=== PATIENT | male | born 1980 | race Caucasian/White ===

== ENCOUNTER 2018-10-07 12:39 | Emergency (ER) | payer MEDICAID ==
[~2018-10-07] VITALS: Ht 182.9 cm; Wt 84.1 kg
[2018-10-07] MEDS ORDERED: PROP10TA73 PO (12:47)
[2018-10-07] MEDS ORDERED: CLON1 PO (12:47)
[2018-10-07] MEDS ORDERED: VENL25TA47 PO (12:47)
[2018-10-07 13:20] VITALS: BP 112/66
== END 2018-10-07 13:55 | disposition home or self-care (01) ==
LOC: EMS 12:42
DX: R61 Generalized hyperhidrosis (principal); F41.9 Anxiety disorder, unspecified; G89.29 Other chronic pain

== ENCOUNTER 2019-03-01 01:59 | Emergency (ER) | payer MEDICARE, MEDICAID ==
[~2019-03-01] VITALS: Ht 182.9 cm; Wt 88.6 kg
[~2019-03-01 01:59] MED LIST: CLON1TAB13 PO; PROP10TA73 PO; VENL25TA47 PO
[2019-03-01] MEDS ORDERED: SUMA25TA9 PO (02:21)
[2019-03-01 03:53] LABS: AMPHET/METH SCREEN,URINE NEGATIVE (NEGATIVE); BARBITURATE SCREEN, URINE NEGATIVE (NEGATIVE); BENZODIAZEPINES SCREEN,URINE NEGATIVE (NEGATIVE); CANNABINOID SCREEN,URINE POSITIVE (NEGATIVE); COCAINE SCREEN,URINE NEGATIVE (NEGATIVE); METHADONE SCREEN, URINE NEGATIVE (NEGATIVE); OPIATE SCREEN,URINE NEGATIVE (NEGATIVE)
[2019-03-01 03:55] LABS: PHENCYCLIDINE SCREEN,URINE NEGATIVE (NEGATIVE)
[2019-03-01 04:32] VITALS: BP 133/75
== END 2019-03-01 04:55 | disposition left against medical advice (07) ==
LOC: EMS 01:59
DX: F41.9 Anxiety disorder, unspecified (principal); G43.909 Migraine, unspecified, not intractable, without status migrainosus; F12.90 Cannabis use, unspecified, uncomplicated; Z79.899 Other long term (current) drug therapy; Z98.890 Other specified postprocedural states

== ENCOUNTER 2019-03-20 20:25 | Emergency (ER) | payer MEDICARE, MEDICAID ==
[~2019-03-20] VITALS: Ht 180.3 cm; Wt 85.5 kg
[~2019-03-20 20:25] MED LIST changes: +SUMA25TA9 PO
[2019-03-20 21:45] VITALS: BP 116/70
== END 2019-03-21 02:00 | disposition left against medical advice (07) ==
LOC: EMS 20:26
DX: G89.29 Other chronic pain (principal); M54.5 Low back pain; G43.909 Migraine, unspecified, not intractable, without status migrainosus; F41.9 Anxiety disorder, unspecified; F12.90 Cannabis use, unspecified, uncomplicated; Z79.899 Other long term (current) drug therapy

== ENCOUNTER 2019-03-23 18:42 | Emergency (ER) | payer MEDICARE, MEDICAID ==
[~2019-03-23] VITALS: Ht 180.3 cm; Wt 86.4 kg
[2019-03-23 19:22] VITALS: BP 120/76
[2019-03-23] MEDS ORDERED: KETOROLAC TROMETHAMINE 60 MG/2 ML VIAL IM ONE (19:45)
== END 2019-03-23 20:04 | disposition home or self-care (01) ==
LOC: EMS 18:42
DX: M54.41 Lumbago with sciatica, right side (principal); M54.42 Lumbago with sciatica, left side; G43.909 Migraine, unspecified, not intractable, without status migrainosus; F41.9 Anxiety disorder, unspecified; F12.90 Cannabis use, unspecified, uncomplicated
CPT/HCPCS: 96372; 99283; J1885

== ENCOUNTER 2020-05-14 11:27 | Emergency (ER) | payer MEDICARE, OTHER ==
[~2020-05-14] VITALS: Ht 175.3 cm; Wt 72.7 kg
[~2020-05-14 11:27] MED LIST changes: +CLON-595 PO; -CLON1TAB13 PO
[2020-05-14 12:15] LABS: BASOPHILS % (AUTO) 0.4 % (0.0-2.0); EOSINOPHILS % (AUTO) 0.6 % (1.0-6.0); HEMATOCRIT 41.7 % (41-53); HEMOGLOBIN 14.1 g/dL (13.5-17.5); LYMPHOCYTES # (AUTO) 1.9 K/uL (1.0-4.8); LYMPHOCYTES % (AUTO) 20.1 % (22.0-44.0); MEAN CORPUSCULAR HEMOGLOBIN 31.6 pg (26.0-34.0); MEAN CORPUSCULAR HGB CONC 33.8 G/dL (31.0-37.0); MEAN CORPUSCULAR VOLUME 94 fL (80-100); MONOCYTES # (AUTO) 0.7 K/uL (0.1-1.0); MONOCYTES % (AUTO) 7.7 % (2.0-9.0); NEUTROPHILS # (AUTO) 6.7 K/uL (1.8-7.7); NEUTROPHILS % (AUTO) 71.2 % (40.0-70.0); PLATELET COUNT (AUTO) 220 K/uL (150-450); RED BLOOD CELL COUNT(AUTO) 4.46 MIL/uL (4.50-5.90); RED CELL DISTRIBUTION WIDTH 12.7 % (11.5-14.5)
[2020-05-14 12:21] LABS: ANION GAP 10 mmol/L (8-16); CALCIUM, TOTAL 8.9 mg/dL (8.8-10.5); CARBON DIOXIDE 26 mmol/L (22-29); CHLORIDE 103 mmol/L (98-107); CREATININE 1.08 mg/dL (0.60-1.30); GLOMERULAR FILTR. RATE CALC > 60 mL/min (>60); GLUCOSE,RANDOM 102 mg/dL (70-110); POTASSIUM 4.2 mmol/L (3.5-5.1); SODIUM SERUM 139 mmol/L (136-145); UREA NITROGEN, BLOOD 15 mg/dL (7-18)
[2020-05-14 12:50] VITALS: BP 132/72
== END 2020-05-14 13:30 | disposition home or self-care (01) ==
LOC: EMS 11:27
DX: R07.89 Other chest pain (principal); R06.02 Shortness of breath
CPT/HCPCS: 93005; 36415-L1; 36415-TC; 71045-TC

== ENCOUNTER 2020-05-19 22:16 | Emergency (ER) | payer MEDICARE, OTHER ==
[~2020-05-19] VITALS: Ht 182.9 cm; Wt 86.4 kg
[2020-05-19 22:23] VITALS: BP 127/56
[2020-05-20] MEDS ORDERED: OMEP10 PO (11:54)
== END 2020-05-19 23:07 | disposition left against medical advice (07) ==
LOC: EMS 22:16
DX: S61.412A Laceration without foreign body of left hand, initial encounter (principal); Z53.21 Procedure and treatment not carried out due to patient leaving prior to being seen by health care provider; W45.8XXA Other foreign body or object entering through skin, initial encounter; Y93.89 Activity, other specified; Y92.89 Other specified places as the place of occurrence of the external cause; Y99.8 Other external cause status

== ENCOUNTER 2020-05-20 11:50 | Emergency (ER) | payer MEDICARE, OTHER ==
[~2020-05-20] VITALS: Ht 182.9 cm; Wt 75.0 kg
[2020-05-20] MEDS ORDERED: OMEP10 PO (11:54)
[2020-05-20] MEDS ORDERED: POVIDONE-IODINE 10% 15 ML SOLUTION UD TP ONE (13:45)
[2020-05-20] MEDS ORDERED: PERTUSS(ACELL),DIPH,TET VAC/PF 0.5 ML VIAL IM ONE (14:30)
[2020-05-20 15:05] VITALS: BP 121/68
== END 2020-05-20 15:20 | disposition short-term general hospital (02) ==
LOC: EMS 11:53
DX: S61.012A Laceration without foreign body of left thumb without damage to nail, initial encounter (principal); F41.9 Anxiety disorder, unspecified; E78.00 Pure hypercholesterolemia, unspecified; G43.909 Migraine, unspecified, not intractable, without status migrainosus; F12.90 Cannabis use, unspecified, uncomplicated; W26.8XXA Contact with other sharp object(s), not elsewhere classified, initial encounter; Y93.89 Activity, other specified; Y92.098 Other place in other non-institutional residence as the place of occurrence of the external cause; Y99.8 Other external cause status
CPT/HCPCS: 90471; 90715

== ENCOUNTER 2020-08-06 10:11 | Emergency (ER) | payer MEDICARE, OTHER ==
[~2020-08-06] VITALS: Ht 180.3 cm; Wt 81.8 kg
[~2020-08-06 10:11] MED LIST changes: +OMEP10 PO
[2020-08-06 12:55] VITALS: BP 140/78
== END 2020-08-06 13:23 | disposition home or self-care (01) ==
LOC: EMS 10:28
DX: S22.32XA Fracture of one rib, left side, initial encounter for closed fracture (principal); S00.12XA Contusion of left eyelid and periocular area, initial encounter; F41.9 Anxiety disorder, unspecified; E78.00 Pure hypercholesterolemia, unspecified; G43.909 Migraine, unspecified, not intractable, without status migrainosus; F12.90 Cannabis use, unspecified, uncomplicated; Y04.2XXA Assault by strike against or bumped into by another person, initial encounter; Y93.89 Activity, other specified; Y92.89 Other specified places as the place of occurrence of the external cause; Y99.8 Other external cause status
CPT/HCPCS: 70486; 71101; 99284; G0238; 94799; Z7502

== ENCOUNTER 2020-09-28 21:49 | Emergency (ER) | payer OTHER ==
[~2020-09-28] VITALS: Ht 182.9 cm; Wt 79.5 kg
[2020-09-28] MEDS ORDERED: VENL-193 PO (22:10)
[2020-09-28] MEDS ORDERED: ATOR40TA28 PO (22:10)
[2020-09-28] MEDS ORDERED: VENL-53 PO (22:10)
[2020-09-28] MEDS ORDERED: TRAZ-257 PO (22:10)
[2020-09-28 23:35] VITALS: BP 93/61
[2020-09-29] MEDS ORDERED: BACITRACIN 0.9 GM PACKET OINTMENT TP ONE (01:00)
== END 2020-09-29 01:18 | disposition home or self-care (01) ==
LOC: EMS 21:49
DX: T23.202A Burn of second degree of left hand, unspecified site, initial encounter (principal); F12.90 Cannabis use, unspecified, uncomplicated; E78.00 Pure hypercholesterolemia, unspecified; G43.909 Migraine, unspecified, not intractable, without status migrainosus; W20.8XXA Other cause of strike by thrown, projected or falling object, initial encounter; Y93.89 Activity, other specified; Y92.89 Other specified places as the place of occurrence of the external cause; Y99.8 Other external cause status
CPT/HCPCS: 16020; 99282; Z7502; Z7610

== ENCOUNTER 2020-12-16 00:13 | Emergency (ER) | payer OTHER ==
[~2020-12-16] VITALS: Ht 182.9 cm; Wt 79.5 kg
[~2020-12-16 00:13] MED LIST changes: +ATOR40TA28 PO; +TRAZ-257 PO; +VENL-193 PO; +VENL-53 PO
[2020-12-16 01:20] VITALS: BP 126/55
== END 2020-12-16 02:30 | disposition left against medical advice (07) ==
LOC: EMS 00:14
DX: M54.9 Dorsalgia, unspecified (principal); Z53.21 Procedure and treatment not carried out due to patient leaving prior to being seen by health care provider